=== PATIENT | male | born 1995 | race Caucasian/White ===

== ENCOUNTER 2018-09-26 19:26 | Emergency (ER) | payer MEDICAID ==
--- NOTE | 2018-09-26 20:12 | EDM.PDOC ---
ED HPI GENERAL MEDICAL PROBLEM - General Chief Complaint: Trauma Stated Complaint: RT ARM PAIN Time Seen by Provider: 09/26/18 20:00 Source of Information: Reports: Patient, Family History Limitations: Reports: No Limitations - History of Present Illness INITIAL COMMENTS - FREE TEXT/NARRATIVE: Bear was long boarding this pm when he fell onto R proximal forearm and elbow. There is an abrasion visible of the R forearm and suspected effusion of the R elbow. There is pain with movement at the R elbow, but the distal forearm, wrist , and shoulder are asx. He has taken no meds. R elbow Pain Score (Numeric/FACES): 3 - Related Data Allergies Allergy/AdvReac Type Severity Reaction Status Date / Time No Known Allergies Allergy Verified 09/26/18 20:57 Home Meds: Home Meds NK [No Known Home Meds] 01/29/14 [History] Past Medical History - Past Health History Medical/Surgical History: Denies Medical/Surgical History Review of Systems - Review of Systems Review Of Systems: ROS reveals no pertinent complaints other than HPI. ED EXAM, GENERAL - Physical Exam Exam: See Below Exam Limited By: No Limitations General Appearance: Alert, WD/WN, Mild Distress Head: Atraumatic, Normocephalic Neck: Normal Inspection, Supple, Non-Tender, Full Range of Motion Respiratory/Chest: Lungs Clear, Chest Non-Tender Cardiovascular: Regular Rate, Rhythm (Male) Exam: Deferred Rectal (Males) Exam: Deferred Back Exam: Normal Inspection Extremities: Arm Pain (R forearm: visible abrasion with some tenderness overlying the proximal ulna; R elbow: small joint effusion apparent, guarding with movement; CMS intact) Neurological: Alert, Oriented, CN II-XII Intact, Normal Cognition, Normal Gait, No Motor/Sensory Deficits Psychiatric: Normal Affect, Normal Mood Skin Exam: Warm Lymphatic: No Adenopathy Course - Vital Signs Text/Narrative:: Following assessment, ice packs were applied pending results of x rays confirming a hairline radial head fx. A sling was applied. No meds were administered. Last Recorded V/S: Last Vital Signs Temp 36.4 C 09/26/18 20:23 Pulse 90 09/26/18 20:23 Resp 18 09/26/18 20:23 BP 129/85 09/26/18 20:23 Pulse Ox 96 09/26/18 20:23 - Orders/Labs/Meds Orders: Active Orders 24 hr Category Date Time Status Elbow 2V Rt [CR] Stat Exams 09/26/18 20:19 Taken Departure - Departure Time of Disposition: 21:17 Disposition: Home, Self-Care 01 Condition: Good Clinical Impression: Radial head fracture, closed Qualifiers: Encounter type: initial encounter Fracture alignment: nondisplaced Laterality: right Qualified Code(s): S52.124A - Nondisplaced fracture of head of right radius, initial encounter for closed fracture - Discharge Information *PRESCRIPTION DRUG MONITORING PROGRAM REVIEWED*: Not Applicable *COPY OF PRESCRIPTION DRUG MONITORING REPORT IN PATIENT CIPRIANO: Not Applicable Referrals: PCP,Not In Area [Primary Care Provider] - Forms: ED Department Discharge - Problem List & Annotations (1) Radial head fracture, closed SNOMED Code(s): 88206363 Code(s): S52.123A - DISP FX OF HEAD OF UNSP RADIUS, INIT FOR CLOS FX Status : Acute Current Visit: Yes Annotation/Comment:: Sling, RICE, and follow up with PCP in 10 days. Qualifiers: Encounter type: initial encounter Fracture alignment: nondisplaced Laterality: right Qualified Code(s): S52.124A - Nondisplaced fracture of head of right radius, initial encounter for closed fracture - Problem List Review Problem List Initiated/Reviewed/Updated: Yes - My Orders Last 24 Hours: My Active Orders 09/26/18 20:19 Elbow 2V Rt [CR] Stat - Assessment/Plan Last 24 Hours: My Active Orders 09/26/18 20:19 Elbow 2V Rt [CR] Stat Plan: Follow up with PCP in 10 days.
[2018-09-27 02:06] VITALS: BP 128/80
== END 2018-09-26 21:36 | disposition home or self-care (01) ==
LOC: FB.ED 19:26
DX: S52.124A Nondisplaced fracture of head of right radius, initial encounter for closed fracture (principal); W19.XXXA Unspecified fall, initial encounter
CPT/HCPCS: 73070-RT; 99283-25

== ENCOUNTER 2018-10-07 12:46 | Emergency (ER) | payer MEDICAID ==
--- NOTE | 2018-10-07 13:40 | EDM.PDOC ---
ED HPI GENERAL MEDICAL PROBLEM - General Chief Complaint: ENT Problem Stated Complaint: ABSCESS TOOTH Time Seen by Provider: 10/07/18 13:20 Source of Information: Reports: Patient History Limitations: Reports: No Limitations - History of Present Illness INITIAL COMMENTS - FREE TEXT/NARRATIVE: 22-year-old male who reports pain and swelling along his right lower jaw since yesterday. He reports that the swelling has worsened over time. He rates the pain as a 0/10 now but with palpation the pain goes up to a 4/10. It is a sore and sharp pain with some aching and throbbing. He is having no trouble swallowing. He is having no trouble breathing. He has had a bad tooth on his right lower jaw for quite some time. No nausea or vomiting. No fevers or chills. Her no other associated signs or symptoms. There are no other modifying factors. Onset: Other (Yesterday) Duration: Getting Worse Location: Reports: Face (Right lower jaw and tooth) Quality: Reports: Ache, Sharp Severity: Moderate Improves with: Reports: None Worsens with: Reports: Eating (/Chewing.), Other (Palpation) Context: Reports: Other (As above) Associated Symptoms: Reports: No Other Symptoms Treatments [employer]: Reports: NSAIDS RT LOWER JAW Pain Score (Numeric/FACES): 4 - Related Data Allergies Allergy/AdvReac Type Severity Reaction Status Date / Time No Known Allergies Allergy Verified 09/26/18 20:57 Home Meds: Home Meds Clindamycin HCl 450 mg PO TID 10 Days #90 capsule 10/07/18 [Rx] Saccharomyces Boulardii [Florastor] 250 mg PO TID #45 capsule 10/07/18 [Rx] Past Medical History Respiratory History: Reports: Pneumothorax Genitourinary History: Reports: Other (See Below) Other Genitourinary History: hx R testicular CA Musculoskeletal History: Reports: Other (See Below) Other Musculoskeletal History: FRACTURED ELBOW Neurological History: Reports: Concussion, Migraines Psychiatric History: Reports: Anxiety, Depression Oncologic (Cancer) History: Reports: Other (See Below) Other Oncologic History: testicular CA - Past Surgical History HEENT Surgical History: Reports: Adenoidectomy, Myringotomy w Tube(s), Tonsillectomy Other HEENT Surgeries/Procedures: bilat tubes Other Respiratory Surgeries/Procedures: CHEST TUBES PLACED GI Surgical History: Reports: EGD, Other (See Below) Other GI Surgeries/Procedures: exp lap with node dissection Male Surgical History: Reports: Ureteral Stent, Other (See Below) ( Orchiectomy) Other Male Surgeries/Procedures: Nephrostomy tube. Other Oncologic Surgeries/Procedures: R testical removed for CA Social & Family History - Tobacco Use Smoking Status *Q: Current Every Day Smoker Years of Tobacco use: 15 Packs/Tins Daily: 0.5 - Caffeine Use Caffeine Use: Reports: Soda - Recreational Drug Use Recreational Drug Use: Yes Drug Use in Last 12 Months: Yes Recreational Drug Type: Reports: Marijuana/Hashish Recreational Drug Use Frequency: Monthly - Living Situation & Occupation Living situation: Reports: Single Occupation: Unemployed Social History Comment: Here with his mother. ED ROS ENT - Review of Systems Review Of Systems: See Below Constitutional: Reports: No Symptoms HEENT: Reports: Dental Pain, Other (Right lower jaw swelling) Respiratory: Reports: No Symptoms Cardiovascular: Reports: No Symptoms GI/Abdominal: Reports: No Symptoms : Reports: No Symptoms Musculoskeletal: Reports: No Symptoms Skin: Reports: No Symptoms Neurological: Reports: No Symptoms Hematologic/Lymphatic: Reports: No Symptoms Immunologic: Reports: No Symptoms ED EXAM, ENT - Physical Exam Exam: See Below Exam Limited By: No Limitations General Appearance: Alert, WD/WN, No Apparent Distress Eye Exam: Bilateral Eye: EOMI, Normal Inspection, PERRL Ears: Normal External Exam Nose: Normal Inspection, Normal Mucousa, No Blood Mouth/Throat: Dental Abcess, Dental Pain, Dental Tenderness, Gum Swelling, Other (Poor dentition. Right jaw facial swelling and induration and erythema) Head: Atraumatic, Normocephalic Neck: Normal Inspection, Supple, Non-Tender, Full Range of Motion Respiratory/Chest: No Respiratory Distress, Lungs Clear, Normal Breath Sounds, No Accessory Muscle Use, Chest Non-Tender Cardiovascular: Normal Peripheral Pulses, Regular Rate, Rhythm, No JVD GI/Abdominal: Normal Bowel Sounds, Soft, Non-Tender, No Mass Back: Full Range of Motion Extremities: Normal Inspection, Normal Range of Motion, Non-Tender, No Pedal Edema, Normal Capillary Refill Neurological: Alert, Oriented, CN II-XII Intact, Normal Cognition, No Motor/ Sensory Deficits Skin: Warm, Dry, Normal Color, No Rash Course - Vital Signs Last Recorded V/S: Last Vital Signs Temp 36.8 C 10/07/18 12:50 Pulse 99 10/07/18 12:50 Resp 18 10/07/18 12:50 BP 135/89 10/07/18 12:50 Pulse Ox 99 10/07/18 12:50 - Re-Assessments/Exams Free Text/Narrative Re-Assessment/Exam: 10/07/18 13:35: Patient revealed to the [facility] website and there is no evidence of abuse. Patient with a dental abscess with some facial swelling and is being placed on clindamycin along with probiotics. He is urged to follow-up with a dentist as soon as he can arrange. Departure - Departure Time of Disposition: 13:40 Disposition: Home, Self-Care 01 Condition: Good Clinical Impression: Dental abscess, Dental caries - Discharge Information *PRESCRIPTION DRUG MONITORING PROGRAM REVIEWED*: Yes *COPY OF PRESCRIPTION DRUG MONITORING REPORT IN PATIENT CIPRIANO: No (But the results of it are mentioned in the patient noted above.) Prescriptions: Clindamycin HCl 450 mg PO TID 10 Days #90 capsule Saccharomyces Boulardii [Florastor] 250 mg PO TID #45 capsule Instructions: Dental Abscess, [id number] Referrals: PCP,Not In Area [Primary Care Provider] - Forms: ED Department Discharge Additional Instructions: You have a dental abscess. You need to see a dentist as soon as you can arrange as this will be the only doctor that can definitively take care of your problem. Medication as prescribed (clindamycin, Florastor). You may also eat yogurt daily to try to help prevent antibiotic associated diarrhea. You may take ibuprofen and Tylenol as needed for pain. Back to the emergency department for trouble breathing, trouble swallowing or any other concerning sign or symptom.
[2018-10-07 13:49] VITALS: BP 132/81
== END 2018-10-07 13:47 | disposition home or self-care (01) ==
LOC: FB.ED 12:46
DX: K04.7 Periapical abscess without sinus (principal); K02.9 Dental caries, unspecified; F17.210 Nicotine dependence, cigarettes, uncomplicated; F41.9 Anxiety disorder, unspecified; F32.9 Major depressive disorder, single episode, unspecified; Z79.899 Other long term (current) drug therapy
CPT/HCPCS: 99282